=== PATIENT | female | born 2000 | race Hispanic/Latino ===

== ENCOUNTER 2020-12-25 17:31 | Emergency (ER) | payer SELFPAY ==
--- NOTE | 2020-12-25 18:58 | RAD REPORT ---
EXAM DESCRIPTION: US - Transvaginal OB - 12/25/2020 6:33 pm CLINICAL HISTORY: VAGINAL BLEEDING COMPARISON: No comparisons TECHNIQUE: Endovaginal sonography performed. FINDINGS: No gestational sac or sac remnant identified within the uterus. Heterogeneous endometrial cavity is believed be remnant hemorrhagic material. No retained product of conception seen. Uterine s ize is normal with no myometrial mass. Right ovary is well-visualized and normal. No right adnexal mass seen. Left ovary obscured by bowel. No left adnexal abnormality identified. No blood or fluid in the cul de sac. IMPRESSION: Hemorrhagic material in the endometrial cavity with no gestational sac, sac remnant or o ther product of conception. No adnexal abnormality to suspect ectopic .
[2020-12-25 19:45] LABS: Urine Blood 3+ (Negative); Urine Glucose Negative (Negative); Urine Protein 3+ (Negative); Urine Specific Gravity >=1.030 (1.005-1.030); Urine pH 5.5 (5.0-7.0)
[2020-12-25 22:52] LABS: Absolute Lymphocytes (CBC) 3.1 K/uL (0.7-4.9); Basophils % 0.4 % (0-1.3); Hematocrit 41.5 % (36.0-45.0); Lymphocytes % 31.8 % (15.3-44.8); MPV 9.2 fL (7.6-11.3); RBC Red Blood Cell Count 4.38 M/uL (3.86-4.86)
[2020-12-25 23:55] LABS: BUN Blood Urea Nitrogen 9 mg/dL (7-18); Bicarbonate 23 mmol/L (21-32); Glucose Level 82 mg/dL (74-106); Potassium 3.5 mmol/L (3.5-5.1); Sodium Level 138 mmol/L (136-145)
[2020-12-26 00:10] LABS: HCG, Quantitative 2053 mIU/mL (1-3)
[2020-12-26] MEDS ORDERED: CEFTRIAXONE 1000 MG/VIAL ONE (00:31)
--- NOTE | 2020-12-26 00:32 | EDPHYS ---
Physician Documentation [facility] Name: Jackie Cardona Age: 20 yrs Sex: Female : 2000 Arrival Date: 12/25/2020 Time: 17:37 Bed 26 Private MD: ED Physician Dallas Dempsey HPI: 12/25 18:12 This 20 yrs old Female presents to ER via Ambulatory with complaints of jmm Vaginal Bleeding, + Preg <12wks. 18:12 The patient presents to the emergency department with vaginal bleeding. Previous jmm pregnancies: in previous pregnancies patient has had. This is a 20-year-old female G3, P1 who presents emerged part with complaints of heavy vaginal bleeding which occurred just prior to arrival with large amount of clotting. Patient denies weakness or dizziness.. 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 - Social history:: Smoking status: Patient denies any tobacco usage or history of. ROS: 18:12 Constitutional: Negative for fever, chills, and weight loss, Cardiovascular: Negative jmm for chest pain, palpitations, and edema, Respiratory: Negative for shortness of breath, cough, wheezing, and pleuritic chest pain. 18:12 : Positive for vaginal bleeding. 18:12 All other systems are negative. Exam: 18:12 Constitutional: This is a well developed, well nourished patient who is awake, alert, jmm and in no acute distress. Head/Face: atraumatic. Eyes: EOMI, no conjunctival erythema appreciated ENT: Moist Mucus Membranes Neck: Trachea midline, Supple Chest/axilla: Normal chest wall appearance and motion. Cardiovascular: Regular rate and rhythm. No edema appreciated Respiratory: Normal respirations, no respiratory distress appreciated Abdomen/GI: Non distended, soft Back: Normal ROM Skin: General appearance color normal MS/ Extremity: Moves all extremities, no obvious deformities appreciated, no edema noted to the lower extremities Neuro: Awake and alert, normal gait Psych: Behavior is normal, Mood is normal, Patient is cooperative and pleasant Vital Signs: 17:58 BP 136 / 100; Pulse 100; Resp 18 S; Temp 98.4(TE); Pulse Ox 100% on R/A; Weight 83.01 aa5 kg (R); Height 5 ft. 0 in. (152.40 cm) (R); 17:58 Body Mass Index 35.74 (83.01 kg, 152.40 cm) aa5 MDM: 20:25 Patient medically screened. [facility] 12/26 00:30 Data reviewed: vital signs, nurses notes. [facility] 00:30 Counseling: I had a detailed discussion with the patient and/or guardian regarding: the [facility] historical points, exam findings, and any diagnostic results supporting the discharge/admit diagnosis, lab results, the need for outpatient follow up, to return to the emergency department if symptoms worsen or persist or if there are any questions or concerns that arise at home. ED course: Patient is alert nontoxic in appearance in the ED. Vital signs within normal limits. H\T\H normal. Rh is positive. Patient advised to repeat quantitative hCG in 2 to 3 days for reevaluation otherwise given strict return precautions. Patient understood and agrees plan of care. Will treat UTI. 12/25 18:54 Order name: Abo/rh Typing; Complete Time: 00:07 [facility] 12/25 18:54 Order name: Basic Metabolic Panel; Complete Time: 00:13 [facility] 12/25 18:54 Order name: CBC with Diff; Complete Time: 23:01 [facility] 12/25 18:54 Order name: Quantitative Hcg; Complete Time: 00:13 [facility] 12/25 19:45 Order name: Urine Dipstick-Ancillary; Complete Time: 20:31 [facility] 12/25 19:46 Order name: Urine Dipstick-Ancillary [facility] 12/25 18:12 Order name: US Transvaginal Ob; Complete Time: 19:19 aa 12/25 18:54 Order name: IV Saline Lock; Complete Time: 19:34 [facility] 12/25 18:54 Order name: Labs collected and sent; Complete Time: 19:34 [facility] 12/25 18:54 Order name: NPO; Complete Time: 19:34 [facility] 12/25 18:54 Order name: Urine Dipstick-Ancillary (obtain specimen); Complete Time: 19:39 [facility] Administered Medications: 00:32 Drug: Rocephin (cefTRIAXone) 1 grams Route: IV; Rate: calculated rate; Site: left mr2 antecubital; Point of Care Testing: Urine : 12/25 22:00 hCG Reading: Positive; Control Reading: Positive; mr2 Disposition Summary: 12/26/20 00:31 Discharge Ordered Location: Home [facility] Condition: Stable [facility] Diagnosis - Threatened [facility] - UTI/ Urinary tract infection, site not specified [facility] Followup: [facility] - With: Private Physician - When: 2 - 3 days - Reason: Recheck today's complaints, Continuance of care, Re-evaluation by your physician Discharge Instructions: - Discharge Summary Sheet [facility] - Threatened Miscarriage [facility] - Urinary Tract Infection, Adult [facility] Forms: - Medication Reconciliation Form [facility] - Thank You Letter [facility] - Antibiotic Education [facility] - Prescription Opioid Use [facility] Prescriptions: - Cephalexin 500 mg Oral Capsule - take 1 capsule by ORAL route every 8 hours for 10 days; 30 capsule; Refills: 0, [facility] Product Selection Permitted Addendum: 12/28/2020 19:08 Co-signature as Attending Physician, Dallas Dempsey MD. p jeane Signatures: Dispatcher [employer] EDDallas Browning MD MD pkl Mickail, Joel, PA PA Bernadette Pritchard, RN RN aa5 Glynn Lozoya RN RN mr2
--- NOTE | 2020-12-26 00:32 | ER ---
Nurse's Notes [facility] Name: Jackie Cardona Age: 20 yrs Sex: Female : 2000 Arrival Date: 12/25/2020 Time: 17:37 Bed 26 Private MD: Diagnosis: Threatened ;UTI/ Urinary tract infection, site not specified Presentation: 12/25 17:58 Chief complaint: Patient states: "I got a positive test on Thursday and aa5 yesterday I started spotting yesterday and today around 3pm I felt a gush of blood come out". Pt reports she has used 2 pads since 3pm today. Pt denies pain. Coronavirus screen: At this time, the client does not indicate any symptoms associated with coronavirus-19. Ebola Screen: No symptoms or risks identified at this time. Initial Sepsis Screen: Does the patient meet any 2 criteria? No. Patient's initial sepsis screen is negative. Does the patient have a suspected source of infection? No. Patient's initial sepsis screen is negative. Risk Assessment: Do you want to hurt yourself or someone else? Patient reports no desire to harm self or others. Onset of symptoms was December 25, 2020. 17:58 Method Of Arrival: Ambulatory aa5 17:58 Acuity: SALOME 2 aa5 Triage Assessment: 19:30 General: Appears in no apparent distress. comfortable, Behavior is calm, cooperative. mr2 Pain: Denies pain. : Reports cramping, vaginal bleeding that is bright red, since 3 days. 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 Historical: - Allergies: 18:00 No Known Allergies; aa5 - Home Meds: 18:00 None [Active]; aa5 - PMHx: 18:00 None; aa5 - PSHx: 18:00 None; aa5 - Immunization history:: Client reports having NOT received the Covid vaccine. - Social history:: Smoking status: Patient denies any tobacco usage or history of. Screenin:40 Abuse screen: Denies threats or abuse. Denies injuries from another. Nutritional mr2 screening: No deficits noted. Tuberculosis screening: No symptoms or risk factors identified. Fall Risk IV access (20 points). Assessment: 19:40 Obstetrical Assessment: General assessment: awake and alert, Contractions Patient mr2 reports nausea, abdominal cramping. : Reports cramping, vaginal bleeding that is. Vital Signs: 17:58 BP 136 / 100; Pulse 100; Resp 18 S; Temp 98.4(TE); Pulse Ox 100% on R/A; Weight 83.01 aa5 kg (R); Height 5 ft. 0 in. (152.40 cm) (R); 17:58 Body Mass Index 35.74 (83.01 kg, 152.40 cm) aa5 Vitals: 20:00 Heart Tones neg fht . mr2 ED Course: 17:37 Patient arrived in ED. mr 17:58 Arm band placed on. aa5 18:00 Triage completed. aa5 18:35 US Transvaginal Ob In Process Unspecified. EDMS 18:53 Dominick Mg PA is PHCP. [facility] 18:53 Dallas Dempsey MD is Attending Physician. [facility] 19:09 Tracey Rocha, RN is Primary Nurse. ld1 19:34 Abo/rh Typing Sent. ld1 19:35 Basic Metabolic Panel Sent. ld1 19:35 Quantitative Hcg Sent. ld1 19:39 CBC with Diff Sent. ld1 19:40 Patient has correct armband on for positive identification. Bed in low position. Call mr2 light in reach. Side rails up X2. 19:40 No provider procedures requiring assistance completed. Inserted saline lock: 18 gauge mr2 in right antecubital area, using aseptic technique. 11 00:40 IV discontinued. mr2 Administered Medications: 00:32 Drug: Rocephin (cefTRIAXone) 1 grams Route: IV; Rate: calculated rate; Site: left mr2 antecubital; Point of Care Testing: Urine : 12/25 22:00 hCG Reading: Positive; Control Reading: Positive; mr2 Outcome: 12/26 00:31 Discharge ordered by . dipak 00:46 Discharged to home ambulatory. mr2 00:46 Condition: stable 00:46 Discharge instructions given to patient, Instructed on follow up and referral plans. medication usage, Prescriptions given X 1. 00:47 Patient left the ED. mr2 Signatures: Dispatcher [employer] EDMS Dominick Mg PA PA jmm Rivera, Mary mr Jacoby, Bernadette, RN RN aa5 Tracey Rocha RN RN ld1 Glynn Lozoya RN RN mr2 Corrections: (The following items were deleted from the chart) 12/25 18:02 18:01 83.01 kg Reported; Height 5 ft. 0 in. Reported; BMI: 35.7; aa5 aa5 18:04 17:58 Acuity: SALOME 3 aa5 aa5
[2020-12-26 01:49] VITALS: BP 136/100; TEMP 98.4; O2SAT 100
== END 2020-12-26 00:47 | disposition home or self-care (01) ==
LOC: ER 17:31
DX: O20.0 Threatened abortion (principal); O23.41 Unspecified infection of urinary tract in pregnancy, first trimester; N39.0 Urinary tract infection, site not specified
CPT/HCPCS: 36415; 76817; 80048; 81003; 84702; 85025; 86900; 86901; 96374; 99284

== ENCOUNTER 2021-05-26 14:17 | Emergency (ER) | payer OTHER, SELFPAY ==
[2021-05-26 18:28] LABS: Urine Blood 3+ (Negative); Urine Glucose Negative (Negative); Urine Protein Negative (Negative); Urine Specific Gravity >=1.030 (1.005-1.030)
[2021-05-26 19:00] LABS: Absolute Lymphocytes (CBC) 2.2 K/uL (0.7-4.9); Lymphocytes % 23.3 % (15.3-44.8); MPV 9.2 fL (7.6-11.3); RBC Red Blood Cell Count 4.41 M/uL (3.86-4.86)
[2021-05-26 19:15] LABS: BUN Blood Urea Nitrogen 9 mg/dL (7-18); Bicarbonate 25 mmol/L (21-32); Glucose Level 93 mg/dL (74-106); Potassium 3.9 mmol/L (3.5-5.1); Sodium Level 139 mmol/L (136-145)
--- NOTE | 2021-05-26 19:53 | RAD REPORT ---
EXAM DESCRIPTION: US - Transvaginal OB - 05/26/2021 7:30 pm CLINICAL HISTORY: VAGINAL BLEEDING COMPARISON: <Comparisons> FINDINGS: Gestational sac identified. A yolk sac is present. The crown-rump length measures 2 millim eters. A heart rate was visualized. No free fluid. No adnexal masses. Uterus measures 7.9 cm. IMPRESSION: Single viable IUP identified with positive heart tones. The gestational sac measur es 5 week 4 day with HEATH of 01/22/2022.
--- NOTE | 2021-05-26 19:59 | ER ---
Nurse's Notes [facility] Name: Jackie Cardona Age: 20 yrs Sex: Female : 2000 Arrival Date: 05/26/2021 Time: 14:22 Bed 17 Private MD: Diagnosis: Threatened Presentation: 05/26 14:36 Chief complaint: Patient states: 7 weeks . Started vaginal bleeding today with ll1 cramping. G4, P1. Coronavirus screen: Vaccine status: Patient reports being unvaccinated. Client denies travel out of the [place] in the last 14 days. At this time, the client does not indicate any symptoms associated with coronavirus-19. Ebola Screen: Patient denies travel to an Ebola-affected area in the 21 days before illness onset. Initial Sepsis Screen: Does the patient meet any 2 criteria? No. Patient's initial sepsis screen is negative. Does the patient have a suspected source of infection? No. Patient's initial sepsis screen is negative. Risk Assessment: Do you want to hurt yourself or someone else? Patient reports no desire to harm self or others. Onset of symptoms was May 26, 2021. 14:36 Method Of Arrival: Ambulatory ll1 14:36 Acuity: SALOME 3 ll1 Triage Assessment: 14:37 General: Appears uncomfortable, Behavior is calm, cooperative, appropriate for age. ll1 Pain: Complains of pain in pelvis Quality of pain is described as aching, crampy. : Reports cramping, vaginal bleeding that is light flow. 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 - Social history:: Smoking status: Patient denies any tobacco usage or history of. Screenin:35 Abuse screen: Denies threats or abuse. Denies injuries from another. Nutritional ww screening: No deficits noted. Tuberculosis screening: No symptoms or risk factors identified. Fall Risk None identified. Assessment: 18:35 General: Appears in no apparent distress. comfortable, Behavior is calm, cooperative. ww Pain: Denies pain. Neuro: Level of Consciousness is awake, alert, obeys commands, Oriented to person, place, time, situation, Moves all extremities. Gait is steady, Speech is normal. Cardiovascular: Capillary refill < 3 seconds Patient's skin is warm and dry. Respiratory: Airway is patent Respiratory effort is even, unlabored, Respiratory pattern is regular, symmetrical. GI: No signs and/or symptoms were reported involving the gastrointestinal system. Abdomen is non-distended. : Urine is clear, Reports vaginal bleeding that is. Derm: Skin is intact, is healthy with good turgor. 19:15 Reassessment: Patient is alert, oriented x 3, equal unlabored respirations, skin ke1 warm/dry/pink. Patient denies pain at this time. Vital Signs: 14:36 BP 140 / 97; Pulse 93; Resp 17; Temp 98.1; Pulse Ox 100% ; Weight 81.65 kg; Height 5 ll1 ft. 0 in. (152.40 cm); Pain 5/10; 20:09 BP 134 / 84; Pulse 86; Resp 18; Pulse Ox 100% on R/A; ke1 14:36 Body Mass Index 35.15 (81.65 kg, 152.40 cm) ll1 ED Course: 14:22 Patient arrived in ED. rg4 14:22 Arm band placed on. ll1 14:30 Vadim Rosales NP is PHCP. pm1 14:30 Jules Posey MD is Attending Physician. pm1 14:38 Triage completed. ll1 17:27 Patient placed in an exam room, on a stretcher. ss 17:36 Sheryl Vidal, RN is Primary Nurse. ww 18:35 Patient has correct armband on for positive identification. Placed in gown. Bed in low ww position. Call light in reach. Side rails up X 1. Adult w/ patient. 18:51 Inserted saline lock: 20 gauge in left forearm, using aseptic technique. mb7 19:31 US Transvaginal Ob In Process Unspecified. EDMS 20:06 No provider procedures requiring assistance completed. ke1 20:09 IV discontinued. ke1 Administered Medications: No medications were administered Outcome: 19:58 Discharge ordered by . pm1 20:09 Discharged to home ambulatory. ke1 20:09 Condition: good 20:09 Discharge instructions given to patient. 20:18 Patient left the ED. ke1 Signatures: Dispatcher [employer] EDMS Gemma Tolentino, RN RN ss Vadim Rosales, AUDIO VISUAL EQUIPMENT RENTAL CLERK AUDIO VISUAL EQUIPMENT RENTAL CLERK pm1 Evy Steiner4 Charles Yao, RN RN ll1 Jeanie Rice mb7 Sheryl Vidal, RN RN ww Sada Alexis, RN RN ke1
--- NOTE | 2021-05-26 20:00 | EDPHYS ---
Physician Documentation [facility] Name: Jackie Cardona Age: 20 yrs Sex: Female : 2000 Arrival Date: 05/26/2021 Time: 14:22 Bed 17 Private MD: ED Physician Jules Posey HPI: 05/26 17:11 This 20 yrs old Female presents to ER via Ambulatory with complaints of pm1 Vaginal Bleeding, + Preg <12wks. 17:11 The patient presents to the emergency department with vaginal bleeding, that is light, pm1 with clots. The estimated gestational age is 7 weeks. course: care: none, Leakage of Fluid: none appreciated, Ultrasound: the patient has not had an ultrasound. Previous pregnancies: in previous pregnancies patient has had 2 miscarriages. Associated signs and symptoms: Pertinent negatives: abdominal pain, dysuria, fever. The patient has experienced similar episodes in the past, a few times. The patient has not recently seen a physician. 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 - Social history:: Smoking status: Patient denies any tobacco usage or history of. ROS: 17:11 Constitutional: Negative for fever, chills, and weight loss, Cardiovascular: Negative pm1 for chest pain, palpitations, and edema, Respiratory: Negative for shortness of breath, cough, wheezing, and pleuritic chest pain, Abdomen/GI: Negative for abdominal pain, nausea, vomiting, diarrhea, and constipation, Back: Negative for injury and pain. 17:11 MS/Extremity: Negative for injury and deformity, Skin: Negative for injury, rash, and discoloration, Neuro: Negative for headache, weakness, numbness, tingling, and seizure. 17:11 : Positive for vaginal bleeding, Negative for urinary symptoms. 17:11 All other systems are negative. Exam: 17:11 Constitutional: This is a well developed, well nourished patient who is awake, alert, pm1 and in no acute distress. Head/Face: Normocephalic, atraumatic. 17:11 Back: No spinal tenderness. No costovertebral tenderness. Full range of motion. Skin: Warm, dry with normal turgor. Normal color with no rashes, no lesions, and no evidence of cellulitis. MS/ Extremity: Pulses equal, no cyanosis. Neurovascular intact. Full, normal range of motion. 17:11 Eyes: Exam is negative for acute changes, Periorbital structures: appear normal, Pupils: no acute changes, Conjunctiva: no acute changes, no injection. 17:11 ENT: Exam is negative for acute changes, Mouth: no acute changes, Lips: normal, moist, Oral mucosa: normal, pink and intact, moist. 17:11 Cardiovascular: Exam negative for acute changes, Rate: normal, Rhythm: regular, Pulses: no pulse deficits are appreciated. 17:11 Respiratory: Exam negative for acute changes, respiratory distress, shortness of breath, Breath sounds: are clear throughout. 17:11 Abdomen/GI: Inspection: obese Palpation: abdomen is soft and non-tender, in all quadrants. 17:11 Neuro: Exam negative for acute changes, Orientation: is normal, Mentation: is normal, Motor: is normal, moves all fours. Vital Signs: 14:36 BP 140 / 97; Pulse 93; Resp 17; Temp 98.1; Pulse Ox 100% ; Weight 81.65 kg; Height 5 ll1 ft. 0 in. (152.40 cm); Pain 5/10; 20:09 BP 134 / 84; Pulse 86; Resp 18; Pulse Ox 100% on R/A; ke1 14:36 Body Mass Index 35.15 (81.65 kg, 152.40 cm) ll1 MDM: 15:17 Patient medically screened. pm1 17:14 Data reviewed: vital signs. Data interpreted: Pulse oximetry: on room air is 100 %. pm1 Interpretation: normal. 19:58 Counseling: I had a detailed discussion with the patient and/or guardian regarding: the pm1 historical points, exam findings, and any diagnostic results supporting the discharge/admit diagnosis, lab results, radiology results, the need for outpatient follow up, to return to the emergency department if symptoms worsen or persist or if there are any questions or concerns that arise at home. 05/26 15:13 Order name: Abo/rh Typing; Complete Time: 19:56 pm1 05/26 15:13 Order name: Basic Metabolic Panel pm1 05/26 15:13 Order name: CBC with Diff; Complete Time: 19:04 pm1 05/26 15:13 Order name: Quantitative Hcg pm1 05/26 18:28 Order name: Urine Dipstick-Ancillary; Complete Time: 18:40 EDMS 05/26 18:31 Order name: Urine --Ancillary (enter results); Complete Time: 19:17 cs9 05/26 15:13 Order name: IV Saline Lock; Complete Time: 18:56 pm1 05/26 15:13 Order name: Labs collected and sent; Complete Time: 18:56 pm1 05/26 15:13 Order name: NPO; Complete Time: 18:56 pm1 05/26 15:13 Order name: Urine Dipstick-Ancillary (obtain specimen); Complete Time: 18:56 pm1 05/26 15:13 Order name: Urine Test (obtain specimen); Complete Time: 18:56 pm1 05/26 17:11 Order name: US Transvaginal Ob; Complete Time: 19:56 pm1 Administered Medications: No medications were administered Disposition Summary: 05/26/21 19:58 Discharge Ordered Location: Home pm1 Problem: new pm1 Symptoms: have improved pm1 Condition: Stable pm1 Diagnosis - Threatened pm1 Followup: pm1 - With: Emergency Department - When: As needed - Reason: Worsening of condition Followup: pm1 - With: Private Physician - When: 2 - 3 days - Reason: Recheck today's complaints, Continuance of care, Re-evaluation by your physician Discharge Instructions: - Discharge Summary Sheet pm1 - Threatened Miscarriage pm1 Forms: - Medication Reconciliation Form pm1 - Thank You Letter pm1 - Work release form pm1 - Antibiotic Education pm1 - Prescription Opioid Use pm1 Addendum: 05/30/2021 18:37 Co-signature as Attending Physician, Jules Posey MD I agree with the assessment and c carter plan of care. Signatures: Dispatcher [employer] Jules Torres MD MD cha Marinas, Patrick ORE PUNCHER ORE PUNCHER pm1 Charles Yao RN RN ll1
[2021-05-26 20:22] LABS: HCG, Quantitative 1655 mIU/mL (1-3)
[2021-05-26 20:37] VITALS: TEMP 98.1; O2SAT 100
[2021-05-26 20:38] VITALS: BP 134/84
== END 2021-05-26 20:18 | disposition home or self-care (01) ==
LOC: ER 14:17
DX: O20.0 Threatened abortion (principal); Z3A.01 Less than 8 weeks gestation of pregnancy
CPT/HCPCS: 36415; 76817; 80048; 81003; 81025; 84702; 85025; 86900; 86901; 99283